=== PATIENT | male | born 1995 | race Caucasian/White ===

== ENCOUNTER 2023-08-01 22:27 | Emergency (ER) | payer SELFPAY ==
[2023-08-02 02:48] LABS: Absolute Lymphocytes (CBC) 1.5 K/uL (0.7-4.9); Hematocrit 45.4 % (39.6-49.0); Lymphocytes % 28.1 % (15.3-44.8); MCV 89.1 fL (80-100); MPV 8.4 fL (7.6-11.3); Platelets 185 thou/uL (152-406); RBC Red Blood Cell Count 5.09 M/uL (4.33-5.43)
[2023-08-02 03:02] LABS: Potassium 3.7 mEq/L (3.5-5.1)
[2023-08-02] MEDS ORDERED: HYDROCODONE/CHLORPHEN 5 ML/OSYR ONE (03:04)
[2023-08-02 03:29] LABS: RPR (Rapid Plasma Reagin) NON-REACT (NON-REACT)
--- NOTE | 2023-08-02 03:49 | ER ---
Nurse's Notes [facility] Name: Freddy Barrientos Age: 28 yrs Sex: Male : 1995 Arrival Date: 08/01/2023 Time: 22:27 Bed 2 Private MD: Diagnosis: Encounter for screening for infections with a predominantly sexual mode of transmission;Cough;Headache Presentation: 08/01 22:37 Method Of Arrival: EMS: [facility] vc1 22:37 Coronavirus screen: Vaccine status: Patient reports receiving the 2nd dose of the covid vc1 vaccine. At this time, the client does not indicate any symptoms associated with coronavirus-19. Ebola Screen: Patient negative for fever greater than or equal to 101.5 degrees Fahrenheit, and additional compatible Ebola Virus Disease symptoms Patient denies exposure to infectious person. Patient denies travel to an Ebola-affected area in the 21 days before illness onset. No symptoms or risks identified at this time. Risk Assessment: Do you want to hurt yourself or someone else? Patient reports no desire to harm self or others. Onset of symptoms is unknown. 22:37 Acuity: ANDRES 3 vc1 23:37 Note callled from lobby no answer. vc1 08/02 01:38 Chief complaint: Patient states: My girlfriend has neurosyphilis and I am pretty sure I vc1 have it now. She is in the hospital in [place] being treated. I am having hot flashes, keep getting these weird feelings like I am asleep and I have a horrible headache and parts of me keep going numb. Also, having cold symptoms. 01:47 Initial Sepsis Screen: Does the patient meet any 2 criteria? No. Patient's initial vc1 sepsis screen is negative. Does the patient have a suspected source of infection? No. Patient's initial sepsis screen is negative. Triage Assessment: 01:45 General: Appears in no apparent distress. uncomfortable, ill, Behavior is calm, vc1 cooperative, appropriate for age. Pain: Complains of pain in all over, and headache. EENT: No deficits noted. No signs and/or symptoms were reported regarding the EENT system. Neuro: Level of Consciousness is awake, alert, obeys commands, Oriented to person, place, time, situation, Appropriate for age. Cardiovascular: No deficits noted. Respiratory: Airway is patent Respiratory effort is even, unlabored, Respiratory pattern is regular, symmetrical. GI: No deficits noted. No signs and/or symptoms were reported involving the gastrointestinal system. : No deficits noted. No signs and/or symptoms were reported regarding the genitourinary system. Historical: - Allergies: :43 Ceclor; vc1 01:43 Rondec-D; vc1 - Home Meds: :43 None [Active]; vc1 - PMHx: :43 Hypertensive disorder; vc1 - PSHx: :43 None; vc1 - Immunization history:: Client reports receiving the 2nd dose of the Covid vaccine. - Social history:: Smoking status: Patient reports the use of cigarette tobacco products, smokes one pack cigarettes per day. Reported history of juuling and/or vaping. Screenin:47 [facility] ED Fall Risk Assessment (Adult) History of falling in the last 3 months, la4 including since admission No falls in past 3 months (0 pts) Confusion or Disorientation No (0 pts) Intoxicated or Sedated No (0 pts) Impaired Gait No (0 pts) Mobility Assist Device Used No (0 pt) Altered Elimination No (0 pt) Score/Fall Risk Level 0 - 2 = Low Risk Oriented to surroundings, Maintained a safe environment, Provided non-skid footwear. Abuse screen: Denies threats or abuse. Denies injuries from another. Nutritional screening: No deficits noted. Tuberculosis screening: No symptoms or risk factors identified. Assessment: 02:48 General: Appears in no apparent distress. Behavior is calm, cooperative, appropriate la4 for age. Pain: Denies pain. Neuro: No deficits noted. Flores Agitation-Sedation Scale (RASS): 0 - Alert and Calm Level of Consciousness is awake, alert, obeys commands, Oriented to person, place, time, situation, Appropriate for age [place] are equal bilaterally Moves all extremities. Cardiovascular: No deficits noted. Respiratory:. Vital Signs: 08/01 22:37 Weight 117.93 kg; Height 5 ft. 10 in. ; Pain 5/10; vc1 08/02 01:46 BP 178 / 92; Pulse 89; Resp 18; Temp 98.4; Pulse Ox 98% ; vc1 02:53 BP 137 / 75; Pulse 88; Resp 20; Pulse Ox 96% on R/A; la4 04:16 BP 140 / 88; Pulse 87; Resp 16; Temp 98; Pulse Ox 99% on R/A; la4 08/01 22:37 Body Mass Index 37.31 (117.93 kg, 177.8 cm) vc1 08/01 22:37 Pain Scale: Adult vc1 [place] Coma Score: 02:53 Eye Response: spontaneous(4). Motor Response: obeys commands(6). Verbal Response: la4 oriented(5). Total: 15. 04:16 Eye Response: spontaneous(4). Motor Response: obeys commands(6). Verbal Response: la4 oriented(5). Total: 15. ED Course: 08/01 22:34 Patient arrived in ED. rv1 22:44 Gabe Garcia PA is PHCP. cp 22:44 Mandeep Thomas MD is Attending Physician. cp 08/02 01:43 Triage completed. vc1 01:45 Arm band placed on left wrist. vc1 02:30 Bed in low position. Call light in reach. Side rails up X2. la4 02:30 Provided Education on: plan of care. la4 02:47 No provider procedures requiring assistance completed. Inserted saline lock: 18 gauge la4 in right antecubital area, using aseptic technique. 03:00 XRAY Chest Pa And Lat (2 Views) Sent. la4 03:11 XRAY Chest Pa And Lat (2 Views) In Process Unspecified. EDMS 04:32 IV discontinued, intact, bleeding controlled, No redness/swelling at site. Pressure vc1 dressing applied. Administered Medications: 02:53 Drug: Tussionex Pennkinetic ER PO Suspension 5 ml PO once Route: PO; la4 04:15 Drug: Doxycycline PO 100 mg PO once Route: PO; la4 Medication: 04:32 VIS not applicable for this client. vc1 Outcome: 03:48 Discharge ordered by MD. cp 04:32 Discharged to home ambulatory, vc1 04:32 Condition: good 04:32 Discharge instructions given to patient, Instructed on discharge instructions, follow up and referral plans. medication usage, Demonstrated understanding of instructions, follow-up care, medications, Prescriptions given X 3, 04:32 Patient left the ED. vc1 Signatures: Dispatcher [employer] EDAL Gabe Garcia PA PA cp Calcote, Vanessa RN RN vc1 Dayanna Sinha rv1 Lupis Hardwick RN RN la4
--- NOTE | 2023-08-02 03:49 | EDPHYS ---
Physician Documentation [facility] Name: Freddy Barrientos Age: 28 yrs Sex: Male : 1995 Arrival Date: 08/01/2023 Time: 22:27 Bed 2 Private MD: ED Physician Mandeep Thomas HPI: 08/02 02:10 This 28 yrs old Male presents to ER via EMS with complaints of Flu Symptoms. cp 02:10 The patient or guardian reports cough, that is intermittent, congestion, body aches. cp 02:10 Associated signs and symptoms: Pertinent positives: sore throat, Pertinent negatives: cp diarrhea, vomiting. Severity of symptoms: in the emergency department the symptoms are unchanged despite home interventions. 02:10 Patient reports girlfriend recently hospitalized with "neuro" syphilis and he is cp reporting headache, intermittent paresthesias. Denies rash, fever. Historical: - Allergies: 01:43 Ceclor; vc1 01:43 Rondec-D; vc1 - Home Meds: 01:43 None [Active]; vc1 - PMHx: 01:43 Hypertensive disorder; vc1 - PSHx: 01:43 None; vc1 - Immunization history:: Client reports receiving the 2nd dose of the Covid vaccine. - Social history:: Smoking status: Patient reports the use of cigarette tobacco products, smokes one pack cigarettes per day. Reported history of juuling and/or vaping. ROS: 02:15 Constitutional: Positive for body aches, Negative for fever, poor PO intake, cp 02:15 Respiratory: Positive for cough, "sounds productive", cp 02:15 Abdomen/GI: Negative for abdominal pain, vomiting, diarrhea, constipation, 02:15 Eyes: Negative for injury, pain, redness, and discharge, cp 02:15 Cardiovascular: Negative for chest pain, 02:15 Neuro: Positive for headache, Negative for altered mental status, weakness, 02:15 All other systems are negative, cp Exam: 02:20 Constitutional: The patient appears in no acute distress, alert, awake, cp non-diaphoretic, non-toxic, well developed, well nourished, 02:20 Head/Face: Normocephalic, atraumatic. cp 02:20 Eyes: Periorbital structures: appear normal, Pupils: equal, round, and reactive to cp light and accomodation, Extraocular movements: intact throughout, Conjunctiva: normal, no exudate, no injection, Sclera: no appreciated abnormality, Lids and lashes: appear normal, bilaterally, 02:20 ENT: External ear(s): are unremarkable, Ear canal(s): are normal, clear, TM's: dullness, bilaterally, Nose: is normal, Mouth: Lips: moist, Oral mucosa: pink and intact, moist, Posterior pharynx: Airway: no evidence of obstruction, patent, erythema, that is mild, exudate, is not appreciated, 02:20 Neck: ROM/movement: is normal, is supple, no meningismus, no nuchal rigidity, 02:20 Chest/axilla: Inspection: normal, 02:20 Cardiovascular: Rate: normal, Rhythm: regular, 02:20 Respiratory: the patient does not display signs of respiratory distress, Respirations: normal, no use of accessory muscles, no retractions, labored breathing, is not present, Breath sounds: bronchial sounds, that are mild, are heard diffusely, decreased breath sounds, are not appreciated, stridor, is not appreciated, 02:20 Abdomen/GI: Inspection: abdomen appears normal, Palpation: abdomen is soft and non-tender, in all quadrants, 02:20 Skin: no rash present. 02:20 Neuro: Orientation: to person, place \\T\\ time. Mentation: is normal, Cerebellar function: is grossly normal, Motor: moves all fours, strength is normal, Sensation: no obvious gross deficits, Gait: is steady, at a normal pace, without difficulty, Vital Signs: 08/01 22:37 Weight 117.93 kg; Height 5 ft. 10 in. ; Pain 5/10; vc1 08/02 01:46 BP 178 / 92; Pulse 89; Resp 18; Temp 98.4; Pulse Ox 98% ; vc1 02:53 BP 137 / 75; Pulse 88; Resp 20; Pulse Ox 96% on R/A; la4 04:16 BP 140 / 88; Pulse 87; Resp 16; Temp 98; Pulse Ox 99% on R/A; la4 08/01 22:37 Body Mass Index 37.31 (117.93 kg, 177.8 cm) vc1 08/01 22:37 Pain Scale: Adult vc1 Jorge A Coma Score: 02:53 Eye Response: spontaneous(4). Motor Response: obeys commands(6). Verbal Response: la4 oriented(5). Total: 15. 04:16 Eye Response: spontaneous(4). Motor Response: obeys commands(6). Verbal Response: la4 oriented(5). Total: 15. MDM: 01:45 Patient medically screened. cp 03:35 Data reviewed: vital signs, nurses notes, lab test result(s), radiologic studies, plain cp films. 03:35 Differential diagnosis: bronchitis, flu, URI. I considered the following discharge cp prescriptions or medication management in the emergency department Medications were administered in the Emergency Department. See MAR. Care significantly affected by the following chronic conditions: Hypertension. Counseling: I had a detailed discussion with the patient and/or guardian regarding the historical points, exam findings, and any diagnostic results supporting the discharge/admit diagnosis, the presence of at least one elevated blood pressure reading (>120/80) during this emergency department visit, lab results, to return to the emergency department if symptoms worsen or persist or if there are any questions or concerns that arise at home. 08/02 02:10 Order name: Rpr; Complete Time: 03:31 cp 08/02 03:32 Interpretation: Reviewed. 08/02 02:10 Order name: COVID-19 SARS RT PCR; Complete Time: 03:18 08/02 03:32 Interpretation: Reviewed. 08/02 02:10 Order name: Influenza Screen (a \\T\\ B); Complete Time: 03:18 08/02 03:32 Interpretation: Reviewed. 08/02 02:10 Order name: CBC with Diff; Complete Time: 03:18 cp 08/02 02:10 Order name: BMP; Complete Time: 03:18 cp 08/02 03:18 Interpretation: Normal except: CL 108; GLUC 107. 08/02 02:05 Order name: XRAY Chest Pa And Lat (2 Views) 08/02 02:10 Order name: IV; Complete Time: 02:47 cp Administered Medications: 02:53 Drug: Tussionex Pennkinetic ER PO Suspension 5 ml PO once Route: PO; la4 04:15 Drug: Doxycycline PO 100 mg PO once Route: PO; la4 Disposition: 08/03 01:09 Co-signature as Attending Physician, Mandeep Thomas MD I agree with the assessment sp4 and plan of care. I reviewed the patient's care provided by the Advanced Practice Provider and agree with the diagnosis and treatment plan. Disposition Summary: 08/02/23 03:48 Discharge Ordered Notes: Location: Home cp Problem: new cp Symptoms: have improved cp Condition: Stable cp Diagnosis - Encounter for screening for infections with a predominantly sexual mode of cp transmission - Cough cp - Headache cp Followup: cp - With: Private Physician - When: 2 - 3 days - Reason: Recheck today's complaints Discharge Instructions: - Discharge Summary Sheet cp - Cool Mist Vaporizer cp - Cough, Adult cp - Syphilis cp - Syphilis Test cp Forms: - Medication Reconciliation Form cp - Thank You Letter cp - Antibiotic Education cp - Prescription Opioid Use cp - Patient Portal Instructions cp - Leadership Thank You Letter cp Prescriptions: - Ibuprofen 800 mg Oral Tablet - take 1 tablet ORAL route every 8 hours As needed take with food; 30 tablet; cp Refills: 0, Product Selection Permitted - Tessalon Perles 100 mg Oral Capsule - take 1 capsule ORAL route every 8 hours As needed; 15 capsule; Refills: 0, cp Product Selection Permitted - Doxycycline Monohydrate 100 mg Oral tablet - take 1 tablet ORAL route every 12 hours for 14 days; 28 tablet; Refills: 0, cp Product Selection Permitted Signatures: Dispatcher [employer] EDMS Gabe Garcia PA PA cp Calcote, Vanessa, RN RN vc1 Mandeep Thomas MD MD sp4 Lupis Hardwick RN RN la4
[2023-08-02] MEDS ORDERED: DOXYCYCLINE 100 MG CAP PO ONE (04:21)
[2023-08-02 05:42] VITALS: BP 140/88; TEMP 98; O2SAT 99
--- NOTE | 2023-08-02 12:04 | RAD REPORT ---
EXAM DESCRIPTION: RAD - Chest Pa And Lat (2 Views) - 08/02/2023 3:09 am CLINICAL HISTORY: 28 years Male COUGH COMPARISON: None FINDINGS: Lung volumes adequate. Cardiac silhouette is normal in size. No pneumothorax. No large pleural effusion. No focal consolidation. No acute bony finding. IMPRESSION: No acute cardiopulmonary findings. Electronically signed by: Khloe Tabor MD 08/02/2023 3:20 AM SADDLE MAKER Due to temporary technical issues with the PACS/Fluency reporting system, reports are being signed by the in house radiologists without review as a courtesy to insure prompt reporting. The interpreting radiologist is fully responsible for the content of the report.
== END 2023-08-02 04:32 | disposition home or self-care (01) ==
LOC: ER 22:27
DX: Z11.3 Encounter for screening for infections with a predominantly sexual mode of transmission (principal); R51.9 Headache, unspecified; R05.9 Cough, unspecified
CPT/HCPCS: 36415; 71046; 80048; 85025; 86592; 87635; 87804; 99284

== ENCOUNTER → 2023-11-22 | Emergency (ER) | payer OTHER ==
[~2023-11-22] MED LIST: HYDROCODONE/APAP 10/325 TAB ONE; KETOROLAC 30 MG/ML INJ ONE
--- NOTE | 2023-11-22 15:11 | ER ---
Nurse's Notes [facility] Name: Freddy Barrientos Age: 28 yrs Sex: Male : 1995 Arrival Date: 11/22/2023 Time: 14:53 Bed IW5 Private MD: Diagnosis: Dental root caries;Fractured Tooth Presentation: 11/22 15:03 Chief complaint: Patient states: Toothache for a while, worse the last couple of weeks. [facility] Coronavirus screen: Vaccine status: Patient reports receiving the 2nd dose of the covid vaccine. Ebola Screen: Patient denies travel to an Ebola-affected area in the 21 days before illness onset. Initial Sepsis Screen: Does the patient meet any 2 criteria? No. Patient's initial sepsis screen is negative. Does the patient have a suspected source of infection? No. Patient's initial sepsis screen is negative. Risk Assessment: Do you want to hurt yourself or someone else? Patient reports no desire to harm self or others. Onset of symptoms was October 2023. 15:03 Method Of Arrival: Ambulatory [facility] 15:03 Acuity: ANDRES 5 [facility] Triage Assessment: 15:08 General: Appears in no apparent distress. uncomfortable, Behavior is calm, cooperative, [facility] appropriate for age. Pain: Complains of pain in mouth Pain currently is 7 out of 10 on a pain scale. Historical: - Allergies: 15:05 Ceclor; nj1 15:05 Rondec-D; [facility] - PMHx: 15:05 Hypertensive disorder; [facility] - Immunization history:: Client reports receiving the 2nd dose of the Covid vaccine. - Social history:: Smoking status: Patient reports the use of cigarette tobacco products, smokes one pack cigarettes per day. Vital Signs: 15:03 BP 138 / 80; Pulse 83; Resp 18; Temp 98.5(O); Pulse Ox 99% ; Weight 117.93 kg; Height 5 [facility] ft. 10 in. ; Pain 7/10; 15:03 Body Mass Index 37.31 (117.93 kg, 177.8 cm) [facility] 15:03 Pain Scale: Adult [facility] ED Course: 14:57 Patient arrived in ED. mr 15:01 Chiqui Sterling FNP [facility] 15:01 Gabe Damico MD is Attending Physician. jh7 15:05 Triage completed. nj1 15:05 Arm band placed on left wrist. nj1 15:28 No provider procedures requiring assistance completed. Patient did not have IV access nj1 during this emergency room visit. 15:29 Provided Education on: discharge instructions. nj1 Administered Medications: 15:24 Drug: Ketorolac IM 60 mg IM once Route: IM; Site: right gluteus; nj1 15:25 Drug: [place] PO 10 mg-325 mg 1 tabs PO once Route: PO; nj1 Medication: 15:29 VIS not applicable for this client. nj1 Outcome: 15:10 Discharge ordered by . jh7 15:28 Discharged to home ambulatory, nj1 15:28 Condition: stable 15:28 Discharge instructions given to patient, Instructed on discharge instructions, follow up and referral plans. medication usage, Demonstrated understanding of instructions, follow-up care, medications, Prescriptions given X 2, 15:29 Patient left the ED. nj1 Signatures: Michelle Salgado, Reg Reg mr Chiqui Sterling, CHANNEL LIP STIFFENER INSOLES CHANNEL LIP STIFFENER [employer]OLES [facility] Kenzie Estrada, RN RN nj1
--- NOTE | 2023-11-22 15:11 | EDPHYS ---
Physician Documentation [facility] Name: Freddy Barrientos Age: 28 yrs Sex: Male : 1995 Arrival Date: 11/22/2023 Time: 14:53 Bed IW5 Private MD: ED Physician Gabe Damico HPI: 11/22 15:03 This 28 yrs old Male presents to ER via Ambulatory with complaints of Toothache. [facility] 15:03 The patient presents with broken tooth/teeth, pain. The problem is located in the [facility] mouth. Onset: The symptoms/episode began/occurred 3 month(s) ago. 28-year-old male presents to the ER for tooth ache for the past 2 weeks. He states that his teeth have been bothering him for about 3 months, but worsened within the past 2 weeks. He was evaluated by a dentist up [place], but states that he just moved down here and is currently seeking dental care to get several teeth extracted. Requesting pain medicine and antibiotics.. Historical: - Allergies: 15:05 Ceclor; nj1 15:05 Rondec-D; nj1 - PMHx: 15:05 Hypertensive disorder; nj1 - Immunization history:: Client reports receiving the 2nd dose of the Covid vaccine. - Social history:: Smoking status: Patient reports the use of cigarette tobacco products, smokes one pack cigarettes per day. ROS: 15:03 Constitutional: Negative for fever, chills, and weight loss, Eyes: Negative for injury, jh7 pain, redness, and discharge, Neck: Negative for injury, pain, and swelling, Cardiovascular: Negative for chest pain, palpitations, and edema, Respiratory: Negative for shortness of breath, cough, wheezing, and pleuritic chest pain, Abdomen/GI: Negative for abdominal pain, nausea, vomiting, diarrhea, and constipation, Back: Negative for injury and pain, MS/Extremity: Negative for injury and deformity, Skin: Negative for injury, rash, and discoloration, Neuro: Negative for headache, weakness, numbness, tingling, and seizure, 15:03 ENT: Positive for dental pain, 15:03 All other systems are negative, Exam: 15:03 Constitutional: This is a well developed, well nourished patient who is awake, alert, jh7 and in no acute distress. Cardiovascular: Regular rate and rhythm with a normal S1 and S2. No gallops, murmurs, or rubs. Normal PMI, no JVD. No pulse deficits. Respiratory: Lungs have equal breath sounds bilaterally, clear to auscultation and percussion. No rales, rhonchi or wheezes noted. No increased work of breathing, no retractions or nasal flaring. Abdomen/GI: Soft, non-tender, with normal bowel sounds. No distension or tympany. No guarding or rebound. No evidence of tenderness throughout. Skin: Warm, dry with normal turgor. Normal color with no rashes, no lesions, and no evidence of cellulitis. MS/ Extremity: Pulses equal, no cyanosis. Neurovascular intact. Full, normal range of motion. Neuro: Awake and alert, GCS 15, oriented to person, place, time, and situation. Motor strength 5/5 in all extremities. Sensory grossly intact. Normal gait. 15:03 ENT: Dental exam: dental caries, that is severe, fractured teeth are noted, specifically the lower right third molar (#32), Vital Signs: 15:03 BP 138 / 80; Pulse 83; Resp 18; Temp 98.5(O); Pulse Ox 99% ; Weight 117.93 kg; Height 5 [facility] [place] ft. 10 in. ; Pain 7/10; 15:03 Body Mass Index 37.31 (117.93 kg, 177.8 cm) [facility] 15:03 Pain Scale: Adult [facility] MDM: 15:01 Patient medically screened. [facility] 15:30 Differential diagnosis: dental caries, gingivitis, dental abscess. Data reviewed: vital [facility] signs, nurses notes. I considered the following discharge prescriptions or medication management in the emergency department Medications were administered in the Emergency Department. See MAR. Care significantly affected by the following chronic conditions: Hypertension. Counseling: I had a detailed discussion with the patient and/or guardian regarding the historical points, exam findings, and any diagnostic results supporting the discharge/admit diagnosis, the need for outpatient follow up, a dentist, to return to the emergency department if symptoms worsen or persist or if there are any questions or concerns that arise at home. Administered Medications: 15:24 Drug: Ketorolac IM 60 mg IM once Route: IM; Site: right gluteus; [facility] 15:25 Drug: [place] PO 10 mg-325 mg 1 tabs PO once Route: PO; nj1 Disposition Summary: 11/22/23 15:10 Discharge Ordered Notes: Location: Home [facility] Problem: an ongoing problem [facility] Symptoms: have worsened [facility] Condition: Stable [facility] Diagnosis - Dental root caries [facility] - Fractured Tooth [facility] Followup: [facility] - With: Private Physician - When: 2 - 3 days - Reason: Recheck today's complaints Discharge Instructions: - Discharge Summary Sheet [facility] - Dental Caries, Adult [facility] - Tooth Injuries [facility] Forms: - Work release form hb - Medication Reconciliation Form [facility] - Thank You Letter [facility] - Antibiotic Education [facility] - Prescription Opioid Use [facility] - Patient Portal Instructions [facility] - Leadership Thank You Letter [facility] Prescriptions: - acetaminophen-codeine 300-15 mg Oral tablet - take 1 tablet ORAL route every 4 to 6 hours As needed as needed for pain; 30 jh7 tablet; Refills: 0, Product Selection Permitted - Clindamycin HCl 300 mg Oral capsule - take 1 capsule ORAL route 3 times per day for 10 days; 30 capsule; Refills: 0, jh7 Product Selection Permitted Signatures: Chiqui Sterling, STATION REPAIRER STATION REPAIRER [facility] Kenzie Estrada RN RN nj1
[2023-11-22 16:00] VITALS: BP 138/80; TEMP 98.5; O2SAT 99
== END ==
LOC: ER 14:53
DX: K02.9 Dental caries, unspecified (principal); S02.5XXA Fracture of tooth (traumatic), initial encounter for closed fracture; F17.210 Nicotine dependence, cigarettes, uncomplicated; Z88.8 Allergy status to other drugs, medicaments and biological substances
CPT/HCPCS: 96372; 99284

== ENCOUNTER 2023-12-27 14:37 | Emergency (ER) | payer OTHER ==
--- NOTE | 2023-12-27 15:03 | ER ---
Nurse's Notes [facility] Name: Freddy Barrientos Age: 28 yrs Sex: Male : 1995 Arrival Date: 12/27/2023 Time: 14:37 Bed 9 Private MD: Diagnosis: dental infection Presentation: 12/26 14:46 Chief complaint: Patient states: left sighted tooth/jaw pain. Coronavirus screen: At as6 this time, the client does not indicate any symptoms associated with coronavirus-19. Ebola Screen: No symptoms or risks identified at this time. Initial Sepsis Screen: Does the patient meet any 2 criteria? No. Patient's initial sepsis screen is negative. Does the patient have a suspected source of infection? No. Patient's initial sepsis screen is negative. Risk Assessment: Do you want to hurt yourself or someone else? Patient reports no desire to harm self or others. Onset of symptoms is unknown. 14:46 Acuity: ANDRES 4 as6 14:46 Method Of Arrival: Ambulatory as6 Triage Assessment: 14:47 General: Appears uncomfortable, Behavior is calm, cooperative. Pain: Complains of pain as6 in left jaw. Historical: - Allergies: 14:46 Ceclor; as6 14:46 Rondec-D; as6 - PMHx: 14:46 Hypertensive disorder; as6 - PSHx: 14:46 Cholecystectomy; as6 - Immunization history:: Adult Immunizations up to date. - Social history:: Smoking status: Patient reports the use of cigarette tobacco products, smokes one-half pack cigarettes per day. Screenin:34 [facility] ED Fall Risk Assessment (Adult) History of falling in the last 3 months, ll1 including since admission No falls in past 3 months (0 pts) Confusion or Disorientation No (0 pts) Intoxicated or Sedated No (0 pts) Impaired Gait No (0 pts) Mobility Assist Device Used No (0 pt) Altered Elimination No (0 pt) Score/Fall Risk Level 0 - 2 = Low Risk Oriented to surroundings, Hourly rounding (assess needs \T\ fall precautionary measures) done. Abuse screen: Denies threats or abuse. Nutritional screening: No deficits noted. Tuberculosis screening: No symptoms or risk factors identified. Assessment: 15:16 General: Appears uncomfortable, Behavior is calm, cooperative, appropriate for age. ll1 Pain: Complains of pain in left jaw Pain currently is 8 out of 10 on a pain scale. Quality of pain is described as aching, throbbing. Neuro: No deficits noted. Cardiovascular: No deficits noted. EENT: Reports pain in left jaw. 15:34 Reassessment: No changes from previously documented assessment. Patient and/or family ll1 updated on plan of care and expected duration. Pain level reassessed. Patient is alert, oriented x 3, equal unlabored respirations, skin warm/dry/pink. Vital Signs: 14:45 BP 153 / 89; Pulse 93; Resp 18 S; Temp 98; Pulse Ox 98% on R/A; Weight 117.93 kg (R); as6 Height 5 ft. 10 in. (R); Pain 8/10; 15:36 BP 151 / 89; Pulse 89; Resp 17; Pulse Ox 98% on R/A; Pain 8/10; ll1 14:45 Body Mass Index 37.31 (117.93 kg, 177.8 cm) as6 14:45 Pain Scale: Adult as6 15:36 Pain Scale: Adult ll1 ED Course: 14:40 Patient arrived in ED. im 14:45 Arm band placed on. as6 14:47 Triage completed. as6 14:48 [facility]ains [facility]. sb4 14:48 Raina Birch MD is Attending Physician. sb4 14:49 Shari Downing, JOHN is Primary Nurse. db 15:02 Renan Pang DDS is Referral Physician. sb4 15:34 No provider procedures requiring assistance completed. Patient did not have IV access ll1 during this emergency room visit. 15:35 Patient has correct armband on for positive identification. Bed in low position. ll1 Provided Education on: finish all prescribed antibiotics. Administered Medications: 15:15 Drug: Hydrocodone-Acetaminophen PO (7.5 mg-325 mg) 1 tabs PO once {Note: pain 8/10 RASS ll1 0.} Route: PO; 15:36 Follow up: Response: No adverse reaction; Pain is unchanged, physician notified; RASS: ll1 Alert and Calm (0) 15:16 Drug: Clindamycin PO 300 mg PO once Route: PO; ll1 15:35 Follow up: Response: No adverse reaction ll1 15:16 Drug: Ketorolac IM 30 mg IM once Route: IM; Site: right gluteus; ll1 15:35 Follow up: Response: No adverse reaction ll1 Medication: 15:35 VIS not applicable for this client. ll1 Outcome: 15:02 Discharge ordered by . sb4 15:34 Discharged to home ambulatory, ll1 15:34 Condition: stable 15:34 Discharge instructions given to patient, Instructed on discharge instructions, follow up and referral plans. medication usage, Demonstrated understanding of instructions, follow-up care, medications, Prescriptions given X 3, 15:36 Patient left the ED. ll1 Signatures: Song Verduzco RN RN ll1 Suman Segura RN RN as6 Shari Downing, RN RN Polly Jacobs, PA-C PA-C sb4 Carley Burdick im
--- NOTE | 2023-12-27 15:03 | EDPHYS ---
Physician Documentation [facility] Name: Freddy Barrientos Age: 28 yrs Sex: Male : 1995 Arrival Date: 12/27/2023 Time: 14:37 Bed 9 Private MD: ED Physician Raina Birch HPI: 12/26 15:23 This 28 yrs old Male presents to ER via Ambulatory with complaints of Toothache, Ear sb4 Pain, Jaw Pain. 15:23 The patient presents with pain, swelling. The problem is located in the lower left sb4 third molar, lower left second molar and lower left first molar. Onset: The symptoms/episode began/occurred gradually. Modifying factors: The symptoms are alleviated by nothing, the symptoms are aggravated by chewing, food. Associated signs and symptoms: Pertinent positives: pain. The patient has not experienced similar symptoms in the past. The patient has not recently seen a physician. Historical: - Allergies: 14:46 Ceclor; as6 14:46 Rondec-D; as6 - PMHx: 14:46 Hypertensive disorder; as6 - PSHx: 14:46 Cholecystectomy; as6 - Immunization history:: Adult Immunizations up to date. - Social history:: Smoking status: Patient reports the use of cigarette tobacco products, smokes one-half pack cigarettes per day. ROS: 15:23 Constitutional: Negative for fever, chills, and weight loss, sb4 15:23 ENT: Positive for dental pain, ear pain, 15:23 All other systems are negative, Exam: 15:23 Constitutional: This is a well developed, well nourished patient who is awake, alert, sb4 and in no acute distress. Head/Face: Normocephalic, atraumatic. Eyes: Extra-ocular motions intact. Periorbital areas with no swelling, redness, or edema. Skin: Warm, dry with normal turgor. Normal color with no rashes, no lesions, and no evidence of cellulitis. MS/ Extremity: Pulses equal, no cyanosis. Neurovascular intact. Full, normal range of motion. Neuro: Awake and alert, GCS 15, oriented to person, place, time, and situation. Motor strength 5/5 in all extremities. Sensory grossly intact. 15:23 ENT: Dental exam: dental caries, that is moderate, specifically in the lower left second molar (#18) and lower left first molar (#19), gum swelling, specifically in the lower left third molar (#17), Vital Signs: 14:45 BP 153 / 89; Pulse 93; Resp 18 S; Temp 98; Pulse Ox 98% on R/A; Weight 117.93 kg (R); as6 Height 5 ft. 10 in. (R); Pain 8/10; 15:36 BP 151 / 89; Pulse 89; Resp 17; Pulse Ox 98% on R/A; Pain 8/10; ll1 14:45 Body Mass Index 37.31 (117.93 kg, 177.8 cm) as6 14:45 Pain Scale: Adult as6 15:36 Pain Scale: Adult ll1 MDM: 14:48 Patient medically screened. sb4 15:23 Differential diagnosis: dental caries, gingivitis, dental abscess. Data reviewed: vital sb4 signs, nurses notes, and as a result, I will discharge patient. Counseling: I had a detailed discussion with the patient and/or guardian regarding the historical points, exam findings, and any diagnostic results supporting the discharge/admit diagnosis, the need for outpatient follow up, a dentist, to return to the emergency department if symptoms worsen or persist or if there are any questions or concerns that arise at home, smoking cessation. Administered Medications: 15:15 Drug: Hydrocodone-Acetaminophen PO (7.5 mg-325 mg) 1 tabs PO once {Note: pain 8/10 RASS ll1 0.} Route: PO; 15:36 Follow up: Response: No adverse reaction; Pain is unchanged, physician notified; RASS: ll1 Alert and Calm (0) 15:16 Drug: Clindamycin PO 300 mg PO once Route: PO; ll1 15:35 Follow up: Response: No adverse reaction ll1 15:16 Drug: Ketorolac IM 30 mg IM once Route: IM; Site: right gluteus; ll1 15:35 Follow up: Response: No adverse reaction ll1 Disposition Summary: 12/27/23 15:02 Discharge Ordered Notes: Location: Home sb4 Problem: an ongoing problem sb4 Symptoms: have improved sb4 Condition: Stable sb4 Diagnosis - dental infection sb4 Followup: sb4 - With: Renan Pang DDS - When: 1 week - Reason: Recheck today's complaints, Re-evaluation by your physician Discharge Instructions: - Discharge Summary Sheet sb4 - Dental Pain, [id number] sb4 Forms: - Work release form ll1 - Thank You Letter sb4 - Antibiotic Education sb4 - Patient Portal Instructions sb4 - Leadership Thank You Letter sb4 Prescriptions: - lidocaine HCl 2 % subgingival-local solution - apply 5 milliliter MUCOUS MEMBRANE route every 8 hours; 100 milliliter; sb4 Refills: 0, Product Selection Permitted - Clindamycin HCl 300 mg Oral Capsule - take 1 capsule ORAL route every 6 hours for 10 days; 40 capsule; Refills: 0, sb4 Product Selection Permitted - Ibuprofen 800 mg Oral Tablet - take 1 tablet ORAL route every 8 hours As needed take with food; 30 tablet; sb4 Refills: 0, Product Selection Permitted Signatures: Song Verduzco RN RN ll1 Suman Segura RN RN as6 Polly Bains PA-C PA-C sb4
[2023-12-27] MEDS ORDERED: KETOROLAC 30 MG/ML INJ ONE (15:10)
[2023-12-27] MEDS ORDERED: HYDROCODONE/APAP 7.5/325 MG TAB ONE (15:11)
[2023-12-27 20:48] VITALS: BP 151/89; TEMP 98; O2SAT 98
== END 2023-12-27 15:36 | disposition home or self-care (01) ==
LOC: ER 14:37
DX: K04.7 Periapical abscess without sinus (principal); F17.210 Nicotine dependence, cigarettes, uncomplicated; Z88.1 Allergy status to other antibiotic agents; Z88.8 Allergy status to other drugs, medicaments and biological substances
CPT/HCPCS: 96372; 99284

== ENCOUNTER 2023-12-31 02:42 | Emergency (ER) | payer OTHER ==
--- OUTSIDE RECORDS SUMMARY | 2023-12-31 02:43 | XMS REPORT | Continuity of Care Document ---
Author Name Unknown Address [address] [place] [address] th[address] Address [address] [place] [address] [address] [place] [address] Care Team Providers Care Advertising Manager Name Role Phone Unavailable Unavailable Unavailable Encounters Start Date/Time End Date/Time Encounter Type Admission Type Attending Clinicians Care Facility Care Department Encounter ID Source 2023-11-17 14:28:06 2023-11-17 14:28:06 Outpatient [facility] [id number] Alex Crook
[2023-12-31] MEDS ORDERED: BUPIVACAINE 0.5% PF 10 ML VIAL ONE (03:30)
[2023-12-31] MEDS ORDERED: LIDOCAINE 1% MPF 2 ML AMPULE ONE (03:30)
[2023-12-31] MEDS ORDERED: KETOROLAC 30 MG/ML INJ ONE (03:30)
[2023-12-31] MEDS ORDERED: ONDANSETRON 4 MG (ODT) TAB ONE (03:30)
[2023-12-31] MEDS ORDERED: CEFTRIAXONE 1000 MG/VIAL ONE (03:30)
[2023-12-31] MEDS ORDERED: CODEINE 30MG/APAP 300MG TAB ONE (03:31)
--- NOTE | 2023-12-31 04:17 | ER ---
Nurse's Notes [facility] Name: Freddy Barrientos Age: 28 yrs Sex: Male : 1995 Arrival Date: 12/31/2023 Time: 02:42 Bed 4 Private MD: Diagnosis: Dental root caries;Dental cavity, Acute Pulpitis Presentation: 12/30 02:48 Chief complaint: EMS states: Called to patient's home for tooth ache X2 months that got cm10 worse tonight at 2300. Pt has been self medicating with lidocaine at home. Coronavirus screen: Client denies travel out of the [place] in the last 14 days. At this time, the client does not indicate any symptoms associated with coronavirus-19. Ebola Screen: Patient denies travel to an Ebola-affected area in the 21 days before illness onset. No symptoms or risks identified at this time. 02:48 Method Of Arrival: EMS: [facility] cm10 02:54 Initial Sepsis Screen: Does the patient meet any 2 criteria? No. Patient's initial cm10 sepsis screen is negative. Does the patient have a suspected source of infection? No. Patient's initial sepsis screen is negative. Risk Assessment: Do you want to hurt yourself or someone else? Patient reports no desire to harm self or others. Onset of symptoms was December 31, 2023. 02:54 Acuity: ANDRES 4 cm10 Triage Assessment: 03:01 General: Appears in no apparent distress. comfortable, Behavior is calm, cooperative. cm10 Pain: Complains of pain in lower left third molar, lower left second molar and lower left first molar. EENT: Reports pain in lower left third molar, lower left second molar and lower left first molar. Neuro: No deficits noted. Level of Consciousness is awake, alert, obeys commands, Oriented to person, place, time, situation. Cardiovascular: No deficits noted. Patient's skin is warm and dry. Respiratory: No deficits noted. Airway is patent Respiratory effort is even, unlabored, Respiratory pattern is regular, symmetrical. Derm: No deficits noted. Skin is intact, Skin is pink, warm \T\ dry. Musculoskeletal: No deficits noted. Range of motion: intact in all extremities. Historical: - Allergies: 02:54 Ceclor; cm10 02:54 Rondec-D; cm10 - PMHx: 02:54 Hypertensive disorder; cm10 - PSHx: 02:54 Cholecystectomy; cm10 - Immunization history:: Adult Immunizations up to date. - Infectious Disease History:: Denies. - Social history:: Smoking status: Patient reports the use of cigarette tobacco products, smokes one-half pack cigarettes per day, Reported history of juuling and/or vaping. - Family history:: not pertinent. Screenin:02 [facility] ED Fall Risk Assessment (Adult) History of falling in the last 3 months, cm10 including since admission No falls in past 3 months (0 pts) Confusion or Disorientation No (0 pts) Intoxicated or Sedated No (0 pts) Impaired Gait No (0 pts) Mobility Assist Device Used No (0 pt) Altered Elimination No (0 pt) Score/Fall Risk Level 0 - 2 = Low Risk Oriented to surroundings, Maintained a safe environment, Hourly rounding (assess needs \T\ fall precautionary measures) done. Abuse screen: Denies threats or abuse. Denies injuries from another. Nutritional screening: No deficits noted. Tuberculosis screening: No symptoms or risk factors identified. Assessment: 04:17 Reassessment: Patient and/or family updated on plan of care and expected duration. Pain cm10 level reassessed. Patient states feeling better. Patient states symptoms have improved. Vital Signs: 02:54 BP 158 / 97; Pulse 82; Resp 18; Temp 98.4; Pulse Ox 97% on R/A; Weight 120.2 kg; Height cm10 5 ft. 10 in. ; Pain 8/10; 02:54 Body Mass Index 38.02 (120.20 kg, 177.8 cm) cm10 02:54 Pain Scale: Adult cm10 ED Course: 02:46 Patient arrived in ED. gm2 02:51 Mandeep Thomas MD is Attending Physician. sp4 02:54 Triage completed. cm10 02:54 Arm band placed on Patient placed in an exam room, on a stretcher. cm10 03:02 Patient has correct armband on for positive identification. Provided Education on: ER cm10 process and procedures.. 03:02 No provider procedures requiring assistance completed. Patient did not have IV access cm10 during this emergency room visit. Administered Medications: 03:45 Drug: Rocephin (cefTRIAXone) IM 1 grams IM once Route: IM; Site: left gluteus; cm10 04:16 Follow up: Response: No adverse reaction cm10 03:46 Drug: Ketorolac IM 60 mg IM once Route: IM; Site: right gluteus; cm10 04:17 Follow up: Response: No adverse reaction cm10 03:46 Drug: Acetaminophen-Codeine PO (300 mg-30 mg) 2 tabs PO once; RASS on ADMIN: Combtv4, cm10 Very Agttd3, Agttd2, Rstlss1, AlertClm0, Drwsy-1, Lt Sdtn-2, Mod Sdtn-3, Dp Sdtn-4, UnArsble-5 Route: PO; 04:16 Follow up: Response: No adverse reaction cm10 03:46 Drug: Ondansetron PO 4 mg PO once Route: PO; cm10 04:17 Follow up: Response: No adverse reaction cm10 04:16 Drug: Bupivacaine Infiltration (0.5 %) 20 ml 10 ml Infiltration once {Note: Given by cm10 Provider..} Volume: 10 ml; Route: Infiltration; Medication: 03:02 VIS not applicable for this client. cm10 Outcome: 04:17 Discharge ordered by . aleja 04:20 Discharged to home ambulatory, Waiting for ride in [facility]. cm10 04:20 Condition: good 04:20 Discharge instructions given to patient, Instructed on discharge instructions, follow up and referral plans. medication usage, Demonstrated understanding of instructions, follow-up care, medications, Prescriptions given X 3, 04:21 Patient left the ED. 10 Signatures: Mandeep Thomas MD MD sp4 Nidhi Haji RN RN 10 Loan Tan 2
--- NOTE | 2023-12-31 04:17 | EDPHYS ---
Physician Documentation [facility] Name: Freddy Barrientos Age: 28 yrs Sex: Male : 1995 Arrival Date: 12/31/2023 Time: 02:42 Bed 4 Private MD: ED Physician Mandeep Thomas HPI: 12/30 02:51 This 28 yrs old Male presents to ER via EMS with complaints of Toothache, sp4 Pain. 04:30 28-year-old male presents with moderate to severe left lower dental pain particularly sp4 wisdom tooth #17. Patient states he does not have dental insurance cannot afford to see a dentist. . Historical: - Allergies: 02:54 Ceclor; cm10 02:54 Rondec-D; cm10 - PMHx: 02:54 Hypertensive disorder; cm10 - PSHx: 02:54 Cholecystectomy; cm10 - Immunization history:: Adult Immunizations up to date. - Infectious Disease History:: Denies. - Social history:: Smoking status: Patient reports the use of cigarette tobacco products, smokes one-half pack cigarettes per day, Reported history of juuling and/or vaping. - Family history:: not pertinent. ROS: 04:30 Constitutional: Negative for fever, chills, and weight loss, positive for left lower sp4 dental pain 04:30 All other systems are negative, Exam: 04:30 Constitutional: This is a well developed, well nourished patient who is awake, alert, sp4 and in no acute distress. Head/Face: Normocephalic, atraumatic. Eyes: Pupils equal round and reactive to light, extra-ocular motions intact. Lids and lashes normal. Conjunctiva and sclera are not injected. Cornea within normal limits. Periorbital areas with no swelling, redness, or edema. ENT: Nares patent. No nasal discharge, no septal abnormalities noted. Tympanic membranes are normal and external auditory canals are clear. Oropharynx with no redness, swelling, or masses, exudates, or evidence of obstruction, uvula midline. Mucous membranes moist. Poor dentition, moderate periodontal disease diffusely, multiple areas of dental caries dental decay. Left lower gingiva tooth #17 large cavity. Signs of pulpitis tooth #17 Neck: Trachea midline, no thyromegaly or masses palpated, and no cervical lymphadenopathy. Supple, full range of motion without nuchal rigidity, or vertebral point tenderness. Chest/axilla: Normal chest wall appearance and motion. Nontender with no deformity. No lesions are appreciated. Cardiovascular: Regular rate and rhythm with a normal S1 and S2. No gallops, murmurs, or rubs. Normal PMI, no JVD. No pulse deficits. Respiratory: Lungs have equal breath sounds bilaterally, clear to auscultation and percussion. No rales, rhonchi or wheezes noted. No increased work of breathing, no retractions or nasal flaring. Abdomen/GI: Soft, with normal bowel sounds. No distension or tympany. No guarding or rebound. No evidence of tenderness throughout. Back: No spinal tenderness. No costovertebral tenderness. Skin: Warm, dry with normal turgor. Normal color with no rashes, no lesions, and no evidence of cellulitis. MS/ Extremity: Pulses equal, no cyanosis. Neurovascular intact. Full, normal range of motion. Neuro: Awake and alert, GCS 15, oriented to person, place, time, and situation. Cranial nerves II-XII grossly intact. Motor strength 5/5 in all extremities. Sensory grossly intact. Psych: Awake, alert, with orientation to person, place and time. Behavior, mood, and affect are within normal limits Vital Signs: 02:54 BP 158 / 97; Pulse 82; Resp 18; Temp 98.4; Pulse Ox 97% on R/A; Weight 120.2 kg; Height cm10 5 ft. 10 in. ; Pain 8/10; 02:54 Body Mass Index 38.02 (120.20 kg, 177.8 cm) cm10 02:54 Pain Scale: Adult cm10 Procedures: 04:30 Performed Block -left lower dental block with Marcaine 0.5%. . Left lower dental block sp4 accomplished with Marcaine 0.5% total of 5 mL. MDM: 03:01 Patient medically screened. sp4 04:30 Differential diagnosis: dental caries, gingivitis, dental abscess, pericoronitis, sp4 gingivostomatitis. Data reviewed: vital signs, nurses notes. ED course: Pain has improved patient stable for discharge home with advised to see dentist for dental extraction tooth # 17 . Administered Medications: 03:45 Drug: Rocephin (cefTRIAXone) IM 1 grams IM once Route: IM; Site: left gluteus; cm10 04:16 Follow up: Response: No adverse reaction cm10 03:46 Drug: Ketorolac IM 60 mg IM once Route: IM; Site: right gluteus; cm10 04:17 Follow up: Response: No adverse reaction cm10 03:46 Drug: Acetaminophen-Codeine PO (300 mg-30 mg) 2 tabs PO once; RASS on ADMIN: Combtv4, cm10 Very Agttd3, Agttd2, Rstlss1, AlertClm0, Drwsy-1, Lt Sdtn-2, Mod Sdtn-3, Dp Sdtn-4, UnArsble-5 Route: PO; 04:16 Follow up: Response: No adverse reaction cm10 03:46 Drug: Ondansetron PO 4 mg PO once Route: PO; cm10 04:17 Follow up: Response: No adverse reaction cm10 04:16 Drug: Bupivacaine Infiltration (0.5 %) 20 ml 10 ml Infiltration once {Note: Given by cm10 Provider..} Volume: 10 ml; Route: Infiltration; Disposition Summary: 12/31/23 04:17 Discharge Ordered Notes: Location: Home sp4 Problem: new sp4 Symptoms: have improved sp4 Condition: Stable sp4 Diagnosis - Dental root caries sp4 - Dental cavity, Acute Pulpitis sp4 Followup: sp4 - With: Private Physician - When: 7 - 10 days - Reason: Recheck today's complaints Discharge Instructions: - Discharge Summary Sheet sp4 - Dental Pain sp4 Forms: - Patient Portal Instructions sp4 Prescriptions: - meloxicam 15 mg Oral tablet - take 1 tablet ORAL route every evening; 30 tablet; Refills: 0, Product sp4 Selection Permitted - Cephalexin 500 mg Oral Capsule - take 1 capsule ORAL route every 12 hours for 10 days; 20 capsule; Refills: 0, sp4 Product Selection Permitted - Tramadol 50 mg Oral tablet - take 1 tablet ORAL route every 8 hours as needed; 20 tablet; Refills: 0, sp4 Product Selection Permitted Signatures: Mandeep Thomas MD MD sp4 Nidhi Haji RN RN cm10
[2023-12-31 04:32] VITALS: BP 158/97; TEMP 98.4; O2SAT 97
== END 2023-12-31 04:21 | disposition home or self-care (01) ==
LOC: ER 02:42
DX: K02.7 Dental root caries (principal); K04.01 Reversible pulpitis; K02.9 Dental caries, unspecified; F17.210 Nicotine dependence, cigarettes, uncomplicated; Z88.1 Allergy status to other antibiotic agents; Z88.8 Allergy status to other drugs, medicaments and biological substances
CPT/HCPCS: 96372; 99284; Q0162; J0696